=== PATIENT | male | born 1975 | race Caucasian/White ===

== ENCOUNTER → 2017-02-09 | Outpatient (CLI) | payer OTHER ==
[~2017-02-09] MED LIST: GABAPENTIN400 MG PO; GLUCOPHAGE 500500 MG PO; KEPPRA500 MG PO; LANTUS100 UNIT/1 SQ; LISINOPRIL20 MG PO; PROZAC40 MG PO; THERAGRAN M TAB1 EA PO; VITAMIN B-1 5050 MG PO
== END ==
LOC: LAB 20:46
DX: Z02.83 Encounter for blood-alcohol and blood-drug test (principal)

== ENCOUNTER 2017-02-10 14:49 | Emergency (ER) | payer MEDICARE ==
[2017-02-10 16:32] LABS: HEMOGLOBIN 14.3 gm/dl (14.0-17.5); RED BLOOD COUNT 5.02 M/UL (4.20-5.50); WHITE BLOOD COUNT 10.4 K/UL (4.5-11.0)
[2017-02-10 16:51] LABS: BUN/CREATININE RATIO 20 (0-10)
== END 2017-02-10 20:51 | disposition home or self-care (01) ==
LOC: ER1 14:49
PROVIDERS: Physician Assistant Medical
DX: S46.911A Strain of unspecified muscle, fascia and tendon at shoulder and upper arm level, right arm, initial encounter (principal); S29.011A Strain of muscle and tendon of front wall of thorax, initial encounter; S00.81XA Abrasion of other part of head, initial encounter; E11.65 Type 2 diabetes mellitus with hyperglycemia; K74.60 Unspecified cirrhosis of liver; F41.9 Anxiety disorder, unspecified; Z88.5 Allergy status to narcotic agent; V47.5XXA Car driver injured in collision with fixed or stationary object in traffic accident, initial encounter; Y93.89 Activity, other specified; Y92.410 Unspecified street and highway as the place of occurrence of the external cause
CPT/HCPCS: 36415; 70450; 70486; 71250; 72125; 73030; 80053; 81001; 82150; 83690; 84484; 85025; 93005; 96374; 99284; J1885

== ENCOUNTER → 2017-03-04 | Outpatient (CLI) | payer MEDICARE ==
[2017-03-04 10:52] LABS: HEMOGLOBIN 13.7 gm/dl (14.0-17.5); RED BLOOD COUNT 4.83 M/UL (4.20-5.50); WHITE BLOOD COUNT 5.5 K/UL (4.5-11.0)
[2017-03-04 11:24] LABS: BUN/CREATININE RATIO 15 (0-10)
== END ==
LOC: US 09:25
PROVIDERS: Nurse Practitioner
DX: B18.2 Chronic viral hepatitis C (principal); K80.20 Calculus of gallbladder without cholecystitis without obstruction
CPT/HCPCS: 36415; 76705; 80053; 80074; 82103; 82105; 82172; 82247; 82390; 82728; 82977; 83010; 83540; 83550; 83883; 84460; 85027; 85610; 86039; 86235; 86255; 87390; 87521; G0480

== ENCOUNTER → 2021-05-28 | Outpatient (CLI) | payer OTHER ==
[~2021-05-28] MED LIST changes: +BASAGLAR K100 UNIT/1 SQ; +CIPRO500 MG PO; +FLAGYL500 MG PO; +GLUCOPHAGE1000 MG PO; +IPRAT-ALBUT 0.5-3 ML INH; -LANTUS100 UNIT/1 SQ; +OXYCODONE HCL5 M1 PO; +PROTONIX40 MG PO; +PROZAC20 MG PO; -PROZAC40 MG PO; +SYMBICORT 80-41 INHA INH; +TESSALON PERLE100 MG PO; +ZOFRAN ODT 4 MG4 MG PO
== END ==
LOC: EXRD 08:14
DX: K70.30 Alcoholic cirrhosis of liver without ascites (principal); R16.1 Splenomegaly, not elsewhere classified; K83.8 Other specified diseases of biliary tract
CPT/HCPCS: 76700

== ENCOUNTER 2021-10-08 16:19 | Emergency (ER) | payer OTHER ==
[2021-10-08 17:50] LABS: RED BLOOD COUNT 4.84 M/UL (4.20-5.50); WHITE BLOOD COUNT 5.8 K/UL (4.5-11.0)
[2021-10-08 18:16] LABS: BUN/CREATININE RATIO 15 (0-10)
[2021-10-08 21:04] LABS: HEMOGLOBIN 14.6 gm/dl (14.0-17.5)
== END 2021-10-09 00:02 | disposition home or self-care (01) ==
LOC: ER1 16:19
PROVIDERS: Emergency Medicine; Student in an Organized Health Care Education/Training Program
DX: R04.2 Hemoptysis (principal); E11.9 Type 2 diabetes mellitus without complications; I10 Essential (primary) hypertension; F17.200 Nicotine dependence, unspecified, uncomplicated; Z20.822 Contact with and (suspected) exposure to COVID-19
CPT/HCPCS: 71045; 80053; 82550; 82553; 83874; 84484; 85014; 85018; 85025; 85379; 85610; 85730; 99285; U0002